=== PATIENT | male | born 2005 | race Caucasian/White ===

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

== ENCOUNTER 2023-01-08 12:57 | Outpatient (RCR) | payer OTHER | END 2023-01-19 | disposition home or self-care (01) | PROVIDERS: ATTEND Orthopaedic Surgery | DX: M67.02 Short Achilles tendon (acquired), left ankle (principal) ==